=== PATIENT | male | born 1980 | race Caucasian/White ===

== ENCOUNTER 2022-04-12 02:23 | Emergency (ER) | payer SELFPAY ==
[~2022-04-12] VITALS: Ht 167.6 cm; Wt 104.3 kg
--- NOTE | 2022-04-12 02:35 | NUR ---
[id number] C/O ANXIETY ATTACK; SATTING 100% ON R/A. DENIES PAIN. PATIENT IS AAOX4. ANXIOUS, ABLE TO MAKE NEEDS KNOWN. PLACED COMFORTABLY IN BED. CHANGED TO HOSPITAL GOWN. VITALS CHECKED.
--- NOTE | 2022-04-12 02:40 | NUR ---
[id number] FROM HOME C/O ANXIETY ATTACK; SATTING 100% ON R/A. DENIES PAIN. PT A/OX4. TOLERATING R/A WELL WITH NO RESP DISTRESS. SAFETY MEASURES IN PLACE.
[2022-04-12] MEDS ORDERED: LORAZEPAM INJ 2 MG/ML VIAL ONE (02:42)
[2022-04-12] MEDS ORDERED: LORAZEPAM INJ 2 MG/ML VIAL IM ONE (03:00)
--- NOTE | 2022-04-12 03:59 | NUR ---
Patient discharged to home in stable condition. Written and verbal after care instructions given. Patient verbalizes understanding of instruction.
[2022-04-12 04:08] VITALS: BP 151/88
== END 2022-04-12 04:17 | disposition home or self-care (01) ==
LOC: ER 02:28
DX: F41.0 Panic disorder [episodic paroxysmal anxiety] (principal)
CPT/HCPCS: 99283; 96372; J2060